=== PATIENT | female | born 1995 | race American Indian/Alaskan Native ===

== ENCOUNTER 2018-10-18 10:41 | Emergency (ER) | payer OTHER ==
[2018-10-18 10:49] VITALS: BP 144/82
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
--- NOTE | 2018-10-18 11:38 | XRay Report ---
AP AND LATERAL LUMBOSACRAL SPINE: Pain. The vertebral bodies are well mineralized and normal in alignment and vertebral height with well preserved interspace distances. The visualized portions of the posterior elements are normal. IMPRESSION: Normal study.
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
== END 2018-10-18 12:12 | disposition home or self-care (01) ==
LOC: ED 10:41
DX: S39.012A Strain of muscle, fascia and tendon of lower back, initial encounter (principal); J45.909 Unspecified asthma, uncomplicated; Z91.018 Allergy to other foods; V87.7XXA Person injured in collision between other specified motor vehicles (traffic), initial encounter; Y93.89 Activity, other specified; Y92.488 Other paved roadways as the place of occurrence of the external cause; Y99.8 Other external cause status
CPT/HCPCS: 72100; 99283